=== PATIENT | female | born 1995 | race Two or more races ===

== ENCOUNTER → 2023-11-05 13:32 | Outpatient (CLI) | payer OTHER | END | disposition home or self-care (01) | LOC: PRENATAL 13:32 | PROVIDERS: ATTEND Obstetrics & Gynecology Maternal & Fetal Medicine | DX: O35.9XX0 Maternal care for (suspected) fetal abnormality and damage, unspecified, not applicable or unspecified (principal); O35.3XX0 Maternal care for (suspected) damage to fetus from viral disease in mother, not applicable or unspecified; O44.02 Complete placenta previa NOS or without hemorrhage, second trimester; Z3A.19 19 weeks gestation of pregnancy ==

== ENCOUNTER 2024-01-15 09:07 | Inpatient (IN) | payer OTHER ==
[~2024-01-15] VITALS: Ht 165.1 cm; Wt 72.6 kg
[2024-01-15 07:55] VITALS: BP 114/75
[2024-01-15] MEDS ORDERED: AMPICILLIN SODIUM 2,000 MG in 0.9 % SODIUM CHLORIDE 100 ML IV SCH ×2 (09:24→14:00)
[2024-01-15] MEDS ORDERED: AMPICILLIN SODIUM 2,000 MG VIAL ONE (09:26)
[2024-01-15] MEDS ORDERED: ACETAMINOPHEN 500 MG GEL..CAP PO PRN (09:30)
[2024-01-15] MEDS ORDERED: RINGERS SOLUTION,LACTATED 1,000 ML IV SCH (09:30)
[2024-01-15 11:03] LABS: HEMATOCRIT 36.3 % (36.0-45.00); HEMOGLOBIN 12.7 g/dL (12.0-15.00); MEAN CELL VOLUME 86.3 fL (80.00-100.00); MEAN CORPUSCULAR HEMOGLOBIN 30.3 pg (27.00-32.0); MEAN CORPUSCULAR HGB CONC 35.1 g/dl (32.0-36.0); PLATELET COUNT 229 K/uL (150-450); RED BLOOD COUNT 4.21 M/uL (4.00-6.00); RED CELL DISTRIBUTION WIDTH 12.9 % (11.5-14.5)
[2024-01-15 11:20] LABS: PH,URINE 7.5 (5.0-8.0); URINE APPEARANCE Turbid; URINE BILIRRUBIN Negative (NEGATIVE); URINE BLOOD Moderate; URINE COLOR Yellow; URINE GLUCOSE Negative (NEGATIVE); URINE KETONE Negative (NEGATIVE); URINE LEUKOCYTE Small; URINE NITRATE Negative; URINE PROTEIN Negative (NEGATIVE); URINE UROBILINOGEN 0.2 E.U./dl
[2024-01-15 11:24] LABS: URINE BACTERIA 474.9 uL (0.0-1933); URINE EPITHELIAL CELLS 15.6 uL (0.0-38.8); URINE RBC 379.2 uL (0.0-20.8); URINE WBC 15.6 uL (0.0-23.2)
[2024-01-15 11:27] LABS: BILIRUBIN TOTAL 0.28 mg/dL (0.3-1.2); CALCIUM 9.3 mg/dL (8.5-10.1); CREATININE SERUM 0.92 mg/dL (0.55-1.02); GFR 72.69; GLOBULINA 4.3 G/DL (2.4-3.5); POTASSIUM 4.31 mEq/L (3.5-5.1); TOTAL PROTEIN 7.3 gm/dL (6.4-8.2)
[2024-01-15 11:32] LABS: URINE CAST 0.15 uL (0.0-1.40)
[2024-01-15] MEDS ORDERED: PROMETHAZINE HCL 25 MG/ML AMPUL ONE (12:01)
[2024-01-15] MEDS ORDERED: PROMETHAZINE HCL 25 MG/ML AMPUL IV PRN (12:15)
[2024-01-15] MEDS ORDERED: TYLENOL325 MG PO (12:19)
[2024-01-15] MEDS ORDERED: PRENATAL TABLE1 EAC1 PO (12:19)
[2024-01-15 12:30] VITALS: BP 112/70
[2024-01-15 16:16] VITALS: BP 110/67
[2024-01-15 17:33] VITALS: BP 115/72
[2024-01-16] VITALS: BP 92/58
[2024-01-16 08:00] VITALS: BP 128/86
[2024-01-16 16:00] VITALS: BP 104/68
[2024-01-17 02:18] VITALS: BP 105/69
[2024-01-17 09:00] VITALS: BP 108/61
[2024-01-17 17:00] VITALS: BP 98/62
[2024-01-18 01:58] VITALS: BP 110/55
[2024-01-18 10:00] VITALS: BP 108/71
[2024-01-18 16:47] VITALS: BP 115/76
[2024-01-19 02:01] VITALS: BP 102/68
[2024-01-19 08:00] VITALS: BP 109/72
[2024-01-19] MEDS ORDERED: AMOX-CLAV 875-1 EAC1 PO (09:01)
== END 2024-01-19 10:43 | disposition home or self-care (01) | DRG 831 ==
LOC: LDR 09:07 → OB/GYN 09:07 → LDR 11:53 → OB/GYN 13:10
PROVIDERS: ADMIT Obstetrics & Gynecology; ATTEND Obstetrics & Gynecology
PROC: BY4FZZZ Ultrasonography of Third Trimester, Single Fetus (ICD-10-PCS; principal; 2024-01-15)
PROC: BU4CZZZ Ultrasonography of Uterus and Ovaries (ICD-10-PCS; 2024-01-15)
PROC: 4A1HXCZ Monitoring of Products of Conception, Cardiac Rate, External Approach (ICD-10-PCS; 2024-01-15)
PROC: BT43ZZZ Ultrasonography of Bilateral Kidneys (ICD-10-PCS; 2024-01-16)
DX: O23.03 Infections of kidney in pregnancy, third trimester (principal); O60.03 Preterm labor without delivery, third trimester; O36.5930 Maternal care for other known or suspected poor fetal growth, third trimester, not applicable or unspecified; O26.843 Uterine size-date discrepancy, third trimester; O36.8130 Decreased fetal movements, third trimester, not applicable or unspecified; O99.891 Other specified diseases and conditions complicating pregnancy; Z3A.29 29 weeks gestation of pregnancy; Z20.822 Contact with and (suspected) exposure to COVID-19

== ENCOUNTER → 2024-02-13 10:10 | Outpatient (CLI) | payer OTHER ==
[~2024-02-13 10:10] MED LIST: AMOX-CLAV 875-1 EAC1 PO; PRENATAL TABLE1 EAC1 PO; TYLENOL325 MG PO
== END | disposition home or self-care (01) ==
LOC: PRENATAL 10:10
PROVIDERS: ATTEND Obstetrics & Gynecology Maternal & Fetal Medicine
DX: O26.849 Uterine size-date discrepancy, unspecified trimester (principal); O36.8199 Decreased fetal movements, unspecified trimester, other fetus; Z3A.33 33 weeks gestation of pregnancy

== ENCOUNTER 2024-03-15 13:14 | Inpatient (IN) | payer OTHER ==
[~2024-03-15] VITALS: Ht 165.1 cm; Wt 78.0 kg
[2024-03-15 13:05] VITALS: BP 103/69
[2024-03-15] MEDS ORDERED: RINGERS SOLUTION,LACTATED 1,000 ML IV SCH (13:30)
[2024-03-15 13:35] LABS: HEMATOCRIT 33.3 % (36.0-45.00); HEMOGLOBIN 11.1 g/dL (12.0-15.00); MEAN CORPUSCULAR HEMOGLOBIN 27.4 pg (27.00-32.0); MEAN CORPUSCULAR HGB CONC 33.5 g/dl (32.0-36.0); PLATELET COUNT 255 K/uL (150-450); RED BLOOD COUNT 4.06 M/uL (4.00-6.00); RED CELL DISTRIBUTION WIDTH 14.1 % (11.5-14.5)
[2024-03-15 13:36] LABS: URINE APPEARANCE Cloudy; URINE BILIRRUBIN Negative (NEGATIVE); URINE BLOOD Small; URINE COLOR Yellow; URINE GLUCOSE Negative (NEGATIVE); URINE KETONE Negative (NEGATIVE); URINE LEUKOCYTE Large; URINE NITRATE Negative; URINE PROTEIN Negative (NEGATIVE); URINE UROBILINOGEN 0.2 E.U./dl
[2024-03-15 13:40] LABS: URINE BACTERIA 2279.1 uL (0.0-1933); URINE EPITHELIAL CELLS 126.7 uL (0.0-38.8); URINE WBC 76.8 uL (0.0-23.2)
[2024-03-15 13:49] LABS: URINE CAST 0.91 uL (0.0-1.40); URINE RBC 1.6 uL (0.0-20.8)
[2024-03-15 13:51] LABS: URINE CRYSTALS FEW /HPF
[2024-03-15 13:54] LABS: INR < 0.93; PARTIAL THROMBOPLASTIN TIME 26.3 SECONDS (22.0-34.0)
[2024-03-15 14:08] LABS: PROTHROMBIN TIME 10.2 SECONDS (9.0-11.5)
[2024-03-15 14:32] LABS: ALBUMIN 2.5 gm/dL (3.4-5.0); BILIRUBIN TOTAL 0.21 mg/dL (0.3-1.2); CALCIUM 8.9 mg/dL (8.5-10.1); CREATININE SERUM 0.58 mg/dL (0.55-1.02); GFR 123.79; GLOBULINA 3.9 G/DL (2.4-3.5); POTASSIUM 4.08 mEq/L (3.5-5.1); TOTAL PROTEIN 6.4 gm/dL (6.4-8.2)
[2024-03-15 15:24] VITALS: BP 104/57
[2024-03-15 20:00] VITALS: BP 96/54
[2024-03-15 23:33] VITALS: BP 92/51
[2024-03-16 03:04] VITALS: BP 102/52
[2024-03-16 06:17] VITALS: BP 103/67; O2SAT 99
[2024-03-16] MEDS ORDERED: NITROFURANTOIN MONOHYD/M-CRYST 100 MG CAPSULE PO SCH (12:00)
[2024-03-16 12:30] VITALS: BP 119/81
[2024-03-16 13:16] VITALS: BP 123/77; O2SAT 99
[2024-03-16 15:52] VITALS: BP 127/87
[2024-03-17 00:39] VITALS: BP 124/86
[2024-03-17 08:03] VITALS: BP 121/84
[2024-03-17 16:43] VITALS: BP 133/87
[2024-03-17 22:01] VITALS: BP 120/83
[2024-03-17 23:31] VITALS: BP 110/65
[2024-03-18] VITALS (7 sets, daily range): BP systolic 102–124; BP diastolic 66–83
[2024-03-18] MEDS ORDERED: OXYTOCIN 500 ML IV SCH (07:00)
[2024-03-18] MEDS ORDERED: PROMETHAZINE HCL 50 MG/ML AMPUL IV ONE (13:45)
[2024-03-18] MEDS ORDERED: MEPERIDINE HCL/PF 50 MG/ML VIAL IV ONE (13:45)
[2024-03-18] MEDS ORDERED: PROMETHAZINE HCL 50 MG/ML AMPUL IM ONE (14:00)
[2024-03-18] MEDS ORDERED: ACETAMINOPHEN 500 MG GEL..CAP PO PRN (16:15)
[2024-03-18] MEDS ORDERED: IBUprofen 400 MG TABLET PO PRN (16:15)
[2024-03-18] MEDS ORDERED: OXYTOCIN 1,000 ML IV SCH (16:15)
[2024-03-18] MEDS ORDERED: CHLORHEXIDINE GLUCONATE 120 ML BOTTLE TP SCH (16:15)
[2024-03-18] MEDS ORDERED: ERYTHROMYCIN BASE OPHT 1GM EACH TUBE OP ONE (16:45)
[2024-03-18] MEDS ORDERED: LIDOCAINE HCL 1% 10ML VIAL IJ ONE (16:45)
[2024-03-18] MEDS ORDERED: CHLORHEXIDINE GLUCONATE 120 ML BOTTLE TOP ONE (16:45)
[2024-03-18] MEDS ORDERED: BENZOCAINE/MENTHOL 90 ML BOTTLE TOP SCH (18:00)
[2024-03-19] VITALS: BP 95/60
[2024-03-19 09:57] VITALS: BP 112/76
[2024-03-19 17:14] VITALS: BP 107/64
[2024-03-19 20:55] VITALS: BP 100/65
[2024-03-20] VITALS: BP 104/61
[2024-03-20 08:56] VITALS: BP 124/80
[2024-03-20] MEDS ORDERED: NAPR500T14 PO (12:48)
== END 2024-03-20 14:30 | disposition home or self-care (01) | DRG 807 ==
LOC: LDR 13:14 → OB/GYN 13:14 → LDR 03-17 21:24 → OB/GYN 03-18 18:28
PROVIDERS: ADMIT Obstetrics & Gynecology; ATTEND Obstetrics & Gynecology
PROC: 4A1HXCZ Monitoring of Products of Conception, Cardiac Rate, External Approach (ICD-10-PCS; 2024-03-15)
PROC: 10E0XZZ Delivery of Products of Conception, External Approach (ICD-10-PCS; principal; 2024-03-18)
PROC: 0KQM0ZZ Repair Perineum Muscle, Open Approach (ICD-10-PCS; 2024-03-18)
DX: O70.1 Second degree perineal laceration during delivery (principal); Z37.0 Single live birth; O36.8130 Decreased fetal movements, third trimester, not applicable or unspecified; Z3A.38 38 weeks gestation of pregnancy; Z20.822 Contact with and (suspected) exposure to COVID-19